=== PATIENT | male | born 1965 | race Caucasian/White ===

== ENCOUNTER 2022-12-30 07:31 | Outpatient (CLI) | payer OTHER, SELFPAY | END 2022-12-30 07:32 | disposition home or self-care (01) | LOC: NFLDREF 12-31 06:56 | PROVIDERS: PCP Physician Assistant Medical; Referring Provider Physician Assistant Medical; Visit Provider Physician Assistant Medical | DX: Z13.29 Encounter for screening for other suspected endocrine disorder (principal); Z13.6 Encounter for screening for cardiovascular disorders; Z12.5 Encounter for screening for malignant neoplasm of prostate | CPT/HCPCS: 80053; 80061; 84153; 84443 ==

== ENCOUNTER 2024-01-29 08:23 | Outpatient (CLI) | payer OTHER, SELFPAY | END 2024-01-29 08:24 | disposition home or self-care (01) | LOC: NFLDREF 01-31 07:24 | PROVIDERS: PCP Physician Assistant Medical; Referring Provider Physician Assistant Medical; Visit Provider Physician Assistant Medical | DX: G43.019 Migraine without aura, intractable, without status migrainosus (principal); K21.9 Gastro-esophageal reflux disease without esophagitis; Z12.5 Encounter for screening for malignant neoplasm of prostate; Z13.29 Encounter for screening for other suspected endocrine disorder | CPT/HCPCS: 80053; 80061; 84443; G0103 ==

== ENCOUNTER 2025-02-03 07:51 | Outpatient (CLI) | payer OTHER, SELFPAY | END 2025-02-03 07:52 | disposition home or self-care (01) | LOC: NFLDREF 02-04 21:53 | PROVIDERS: PCP Physician Assistant Medical; Referring Provider Physician Assistant Medical; Visit Provider Physician Assistant Medical | DX: F41.9 Anxiety disorder, unspecified (principal); N40.0 Benign prostatic hyperplasia without lower urinary tract symptoms; R35.0 Frequency of micturition; R42 Dizziness and giddiness; Z13.6 Encounter for screening for cardiovascular disorders; Z12.5 Encounter for screening for malignant neoplasm of prostate; Z79.01 Long term (current) use of anticoagulants | CPT/HCPCS: 80053; 80061; 84443; G0103 ==

== ENCOUNTER 2025-02-21 08:04 | Outpatient (RCR) | payer BC, SELFPAY | END 2025-06-21 23:59 | disposition home or self-care (01) | PROVIDERS: PCP Physician Assistant Medical; Visit Provider Physician Assistant Medical | DX: H81.12 Benign paroxysmal vertigo, left ear (principal); H81.90 Unspecified disorder of vestibular function, unspecified ear; Z51.89 Encounter for other specified aftercare | CPT/HCPCS: 97112; 97161 ==